=== PATIENT | male | born 1955 | race African-American/Black ===

== ENCOUNTER 2017-11-09 19:47 | Emergency (ER) | payer OTHER ==
[~2017-11-09] VITALS: Ht 188 cm; Wt 95.3 kg
[2017-11-09] MEDS ORDERED: TDAP [DIPH/PERTUSSIS/TET] 0.5 ML VIAL IM ONE ×2 (21:30→23:03)
[2017-11-09] MEDS ORDERED: IBUPROFEN 600 MG TABLET PO ONE ×2 (21:30→23:03)
--- NOTE | 2017-11-09 23:14 | NUR ---
Patient discharged to home in stable condition. Written and verbal after care instructions given. Patient verbalizes understanding of instruction. note: medications ordered ere not given dc home by ED physciian
[2017-11-09 23:16] VITALS: BP 138/78
== END 2017-11-09 23:17 | disposition home or self-care (01) ==
LOC: ER 19:50
DX: S01.412A Laceration without foreign body of left cheek and temporomandibular area, initial encounter (principal); J45.909 Unspecified asthma, uncomplicated; R00.2 Palpitations; E11.9 Type 2 diabetes mellitus without complications; I10 Essential (primary) hypertension; Y04.8XXA Assault by other bodily force, initial encounter; X58.XXXA Exposure to other specified factors, initial encounter; Y93.89 Activity, other specified; Y92.89 Other specified places as the place of occurrence of the external cause; Y99.8 Other external cause status
CPT/HCPCS: 12011; 70450; 70486; 71045; 99284; A4606; A6402; Z7610; 90715

== ENCOUNTER → 2017-11-16 | Emergency (ER) | payer OTHER ==
[~2017-11-16] VITALS: Ht 188 cm; Wt 116.1 kg
[2017-11-16 12:46] VITALS: BP 157/84
== END | disposition home or self-care (01) ==
LOC: ER 12:44
DX: S01.511D Laceration without foreign body of lip, subsequent encounter (principal); E11.9 Type 2 diabetes mellitus without complications; I10 Essential (primary) hypertension; J45.909 Unspecified asthma, uncomplicated; X58.XXXD Exposure to other specified factors, subsequent encounter
CPT/HCPCS: 99281; A4606; Z7610; Z7502